=== PATIENT | female | born 1965 | race Caucasian/White ===

== ENCOUNTER → 2017-02-10 | Outpatient (CLI) | payer OTHER ==
[~2017-02-10] MED LIST: ALPRAZOLAM PO; AMBIEN PO; AMBIEN12.5 M1 PO; ATENOLOL; ATENOLOL PO; BACLOFEN10 MG PO; CALCIUM 500 + D1 TAB; CALCIUM 500 + D1 TAB PO; CITRACAL + D CA1 TA1 PO; CYANOCOBAL1000 MCG/M INJ; CYTOMEL5 MCG PO; DIAZEPAM; DICYCLOMINE HCL20 MG; ESTRADIOL1 EACH TD; FENTANYL; KEFLEX500 MG; KEFLEX500 MG PO; LUNESTA; LYRICA; MAXZIDE 37.5 M1 EACH PO; MEDROL PO; METHOTREXATE25 MG/M3 SUBQ; MULTI-VITAMIN1 TAB PO; MULTIPLE VITAMI1 T11 PO; NAPROXEN375 MG PO; NEURONTIN PO; NORCO 10-325 TA1 TAB PO; NORCO 10/325 TA1 TAB PO; PERCOCET 7.5/321 TAB; PHENERGAN; PHENERGAN25 M1 PO; PLAQUENIL200 MG PO; REGLAN; ROXICODONE30 M1 PO; SYNTHROID PO; SYNTHROID175 MCG PO; VANCOCIN HCL250 MG; VIVELLE-DO.0375 MG/2 TD; WELCHOL625 MG; XANAX0.5 M1 PO
--- NOTE | ~2017-02-10 | MR32 ---
[facility] A Service of [facility] RADIOLOGY TEXT RESULTS PATIENT: JENNA EUGENE [facility] 61 UNIT #: [id number] AGE: [address]: Gareth Newberry MD SEX: F ORDER DR: [id number] [facility] [address] [place], [place] [address] [id number] O MR#: [id number] #: [id number] NAME: JENNA EUGENE : 1965 SEX: F STUDY DATE/TIME: 02/10/2017 9:44 UNIT: [facility] ROOM: STUDY DESCRIPTION: MR Cervical Wo Contrast Attending Physician: Gareth Newberry M.D. Referring Physician: Gareth Newberry M.D. Ordering Physician: Gareth Newberry M.D. Primary Care Physician: Rhonda Camilo M.D. MRI CENTER REPORT This report is preliminary unless electronic signature is present. EXAM Cervical spine MRI without. HISTORY Complex per patient. There is concern for a pinched nerve or new disc herniation. Patient's current complaints are right greater than left sided severe arm numbness increasing in the past year. Pain is present all of the time, and there is right hand numbness and weakness. Patient has been dropping things. Patient fell down the steps in the summer of 1998, resulting in an injury, and patient has had symptoms since then. She has had multiple spine surgeries. COMPARISON Plain film comparison is from 08/18/2016. FINDINGS Patient has had prior anterior discectomy and fusion at C4-5 with anterior plate and screws and an intervertebral disc spacer. There is also metal artifact obscuring the C5-6 disc level. This could be because of the proximity of the C5 screws to the disc or could be because there is actually also fusion at the 5-6 level. Please correlate with the operative history, and if this is not helpful, CT scanning of the cervical spine could be obtained with reconstructed imaging to assess the C5-6 disc status. There is mild reversal of lower cervical lordosis. Where not obscured, marrow signal intensity is normal. Intervertebral disc desiccation and loss of disc height apparent at C6-7 with endplate spondylosis. Also some disc desiccation seen at C2-3 and partly seen at C3-4. Cervical cord is normal in size, and there is no reproducible focus of cord signal abnormality. There is no Chiari-I malformation. At C2-3, there is asymmetrically severe right-sided facet degenerative STS. [facility] A Service of [facility] RADIOLOGY TEXT RESULTS PATIENT: JENNA EUGENE [facility] 61 UNIT #: [id number] AGE: [address]: Gareth Newberry MD SEX: F ORDER DR: as[place]. There is a minor posterior disc bulge. There is no canal stenosis. There is moderate right foraminal narrowing. At C3-4, there is [id number] bilateral facet degenerative change with mild broad-based posterior disc bulge, and the might be some subtle retrolisthesis of C3 on C4 allowing for the metal artifact. There is no canal stenosis. There is mild right foraminal narrowing. At C4-5, there is postoperative fusion. There is no canal stenosis or foraminal compromise. No recurrent extrusion is suspected. At C5-6, there is no canal stenosis or foraminal impingement. There is some metal artifact. As noted above it is unclear if the fusion extends to this level, but if it does, there is nothing to suggest a recurrent extrusion. At C6-7, there is moderate concentric disc osteophyte complex with uncovertebral osteophyte formation bilaterally. There is mild cord flattening and canal stenosis. The cord still surrounded by CSF posteriorly. There is severe bilateral foraminal impingement worse to the left. At C7-T1, there is no canal or foraminal impingement. IMPRESSION 1. Prior fusion at least at C4-5, possibly at C5-6. Nothing to suggest recurrent canal stenosis or disc extrusion at postoperative levels. 2. There is mild cord flattening and canal stenosis at the unoperated C6-7 level with bilateral foraminal impingement. There is also asymmetrically severe facet arthritis at the C2-3 level on the right side. Please refer to the [id number] description. Dictated by... Ashley Bush M.D. THIS IS AN ELECTRONICALLY VERIFIED REPORT Ashley Bush M.D. at 02/13/2017 10:25 AM VIANEY/christian TD: 02/10/2017 18:49 JOB #: [id number] MRI CENTER REPORT Page 1 of 1 COPY
== END | disposition home or self-care (01) ==
LOC: CMRI 08:00
DX: M54.12 Radiculopathy, cervical region (principal); M48.02 Spinal stenosis, cervical region; M47.22 Other spondylosis with radiculopathy, cervical region; M46.92 Unspecified inflammatory spondylopathy, cervical region; Z98.1 Arthrodesis status
CPT/HCPCS: 72141